=== PATIENT | female | born 1975 | race Caucasian/White ===

== ENCOUNTER → 2021-12-11 09:41 | Outpatient (CLI) | payer OTHER, SELFPAY ==
--- NOTE | ~2021-12-11 | MMUS_ITS ---
EXAMINATION: MM diagnostic darrell RT w abby, US breast RT limited HISTORY: Right breast mass on screening mammogram TECHNIQUE: Additional 3-D tomosynthesis images of the right breast were performed and synthetic 2-D i mages were generated. CAD analysis was submitted and interpreted. High resolution limited right breas t ultrasound was performed. COMPARISON: 11/27/2021 FINDINGS: MAMMOGRAPHIC FINDINGS: There is a 9 mm oval, obscured, equal density mass in the middle third of the upper-outer quadrant of the breast at the 10:00 location 9 cm from the nipple. No abnormal calcification or architectural di stortion are identified. ULTRASOUND: There is a 9 mm x 6 mm oval, circumscribed, parallel, hypoechoic mass with internal vascularity and n o distinct posterior features at the 10:00 location 7 cm from the nipple. IMPRESSION: 1. Indeterminate right breast mass. 2. Ultrasound-guided biopsy is recommended. BI-RADS category 4, suspicious findings. Reviewed, dictated and finalized at location A. IMPRESSION: 1. Indeterminate right breast mass. 2. Ultrasound-guided biopsy is recommended. BI-RADS category 4, suspicious findings.
== END ==
PROVIDERS: PCP Obstetrics & Gynecology Gynecology; Visit Provider Obstetrics & Gynecology Gynecology
DX: R92.8 Other abnormal and inconclusive findings on diagnostic imaging of breast (principal)
CPT/HCPCS: 76642; 77061; 77065; G0279

== ENCOUNTER 2022-03-25 17:29 | Emergency (ER) | payer OTHER, SELFPAY ==
[2022-03-25 17:59] VITALS: BP 156/104; PULSE 106; RESP 16; TEMP 36.9; O2SAT 100
--- NOTE | 2022-03-25 18:44 | ED.LOWEXIN ---
HPI - Extremity Injury (Lower) General Chief Complaint: Extremity Injury, Lower Stated Complaint: rt thigh swollen Time Seen by Provider: 03/25/22 18:45 Source: patient Mode of arrival: ambulatory Limitations: no limitations History of Present Illness HPI Narrative: 47 y/o female presented for c/o right thigh pain and swelling, onset this morning upon awakening. States pain is consistent throughout the day but swelling has increased. Denies injury, redness or discoloration. Rates pain 4/10, worse with movement. Denies numbness, tingling or weakness of the leg. Denies chest pain, heart racing, shortness of breath or dizziness. No recent travel. Sits at a desk for work. Hx HTN, DM. Related Data Home Medications Medication Instructions Recorded Confirmed etonogestrel 0.12 mg-ethinyl 1 vag ring vaginal MONTHLY 03/25/22 03/25/22 estradiol 0.015 mg/24 hr vaginal ring (NuvaRing) Allergies Allergy/AdvReac Type Severity Reaction Status Date / Time Sulfa (Sulfonamide Allergy Unknown Unknown Verified 03/25/22 18:03 Antibiotics) sulfanilamide Allergy Unknown Unknown Verified 03/25/22 18:03 EPIDURAL DRUG? Allergy Severe BP DROP Uncoded 03/25/22 18:03 Review of Systems Review of Systems: CONSTITUTIONAL: Denies body aches, fever, chills, or sweats. EYES: Denies visual changes, redness, or discharge. CARDIOVASCULAR: Reports RLE edema and pain. Denies chest pain, palpitations RESPIRATORY: Denies cough or dyspnea. GASTROINTESTINAL: Denies abdominal pain, nausea, vomiting, or diarrhea. SKIN: denies redness, wounds or rash. MUSCULOSKELETAL: Denies back pain, joint pain, or myalgia. NEUROLOGIC: Denies headache, numbness, tingling, or weakness. [facility] Past Medical History Medical History Anxiety BMI 39.0-39.9,adult BMI 40.0-44.9, adult Body mass index (BMI) of 40.1 to 44.9 in adult Essential (primary) hypertension Low vitamin B12 level Metabolic syndrome Onychomycosis of great toe Type 2 diabetes mellitus without complications Family History Family History Father Hypertension Cerebrovascular accident Family history of diabetes mellitus in first degree relative Grandparent Diabetes mellitus Mother Spinal stenosis Other Family history of malignant neoplasm Family history of muscular dystrophy Family history of seizure disorder Social History Social History Smoking status: Never smoker Alcohol intake: current Comments At time of signature, I have reviewed and agree with nursing past medical, surgical, social and family history unless otherwise noted. Please see nursing chart for further information. There is no relevant family history pertinent to the presenting complaint Exam Narrative: GENERAL: Well-appearing CHEST: Clear to auscultation. HEART: Regular rate and rhythm. SKIN: Warm, dry. EXT: RLE with significant swelling from thigh to foot, cool extremity, no redness or discoloration, no open wounds or rash. PPP. Full ROM to RLE. Ambulates with steady gait. NEURO: Alert and oriented x3. Course Course Emergency Course: Patient is aware of diagnosis, understands and agrees to treatment plan. Anticipatory guidance given. Portions of this record may have been created with voice recognition software Level of Care: Express Care Visit Vital Signs Vital signs: Vital Signs Temperature 98.5 F 03/25/22 17:59 Pulse Rate 106 H 03/25/22 17:59 Respiratory Rate 16 03/25/22 17:59 Blood Pressure 156/104 H 03/25/22 17:59 Pulse Oximetry 100 03/25/22 17:59 Oxygen Delivery Room Air 03/25/22 17:59 Temperature 98.5 F 03/25/22 17:59 Pulse Rate 106 H 03/25/22 17:59 Respiratory Rate 16 03/25/22 17:59 Blood Pressure 156/104 H 03/25/22 17:59 Pulse Oximetry 100 03/25/22 17:59 Oxygen De
== END 2022-03-25 19:00 | disposition short-term general hospital (02) ==
PROVIDERS: Emergency Provider Nurse Practitioner Family; PCP Family Medicine
DX: R60.0 Localized edema (principal); I10 Essential (primary) hypertension; E11.9 Type 2 diabetes mellitus without complications; Z79.84 Long term (current) use of oral hypoglycemic drugs
CPT/HCPCS: 99212; G0463

== ENCOUNTER 2022-03-25 19:15 | Emergency (ER) | payer OTHER, SELFPAY ==
--- NOTE | ~2022-03-25 | US_ITS ---
EXAMINATION: US venous doppler LE RT DATE: 03/25/2022 21:24 INDICATION: DVT ? . TECHNIQUE: Grayscale images without and with compression and Doppler images of the right lower extrem ity veins were obtained. COMPARISON: None FINDINGS: Acute thrombus in the common femoral, profunda (deep) femoral vein, femoral vein, popliteal vein, pos terior tibial vein, and greater saphenous vein. The right lesser saphenous vein and gastrocnemius vei n are patent. The right peroneal veins were poorly visualized. IMPRESSION: Extensive right lower extremity deep venous thrombosis extending from the right posterior tibial vein s to the right common femoral vein. Results reported telephonically to Dr. Hillman by Dr. Plascencia at 9:30 PM on 03/25/2022. Reviewed, dictated and finalized at location K. IFIED HYPERBARIC TECHNICIAN IMPRESSION: Extensive right lower extremity deep venous thrombosis extending from the right posterior tibial veins to the right common femoral vein. Results reported telephonically to Dr. Hillman by Dr. Plascecnia at 9:30 PM on 2021.
[2022-03-25 19:24] VITALS: BP 188/108; PULSE 106; RESP 18; TEMP 37.1; O2SAT 100
[2022-03-25 20:01] LABS: Basophils Percent Auto 0.4 % (0.2-1.2); Eosinophils Absolute Auto 0.1 K/mm3 (0-0.3); Eosinophils Percent Auto 1.3 % (0-4.4); Hematocrit 38.8 % (37.0-47.0); Hemoglobin 12.7 g/dL (12.0-15.0); Immature Granulocyte Absolute 0.03 K/mm3 (0.00-0.031); Immature Granulocyte Percent A 0.3 % (0-0.5); Lymphocytes Absolute Auto 2.33 K/mm3 (0.9-3.2); Lymphocytes Percent Auto 24.6 % (18.3-44.2); Mean Corpuscular HGB Conc 32.7 g/dl (32-36); Mean Corpuscular Hemoglobin 28.2 pg (26-34); Mean Platelet Volume 10.7 fl (7.4-10.4); Monocytes Absolute Auto 0.7 K/mm3 (0.1-0.6); Monocytes Percent Auto 7.2 % (2.6-8.5); Neutrophils Absolute Auto 6.3 K/mm3 (1.3-6.7); Neutrophils Percent Auto 66.2 % (45.5-73.1); Platelet Count Result 221 k/mm3 (150-375); Red Blood Count 4.51 M/mm3 (4.2-5.4); White Blood Count 9.5 K/mm3 (4.5-10.0)
[2022-03-25 20:11] LABS: INR 0.9; Prothrombin Time 11.9 Seconds (11.1-14.7)
[2022-03-25 20:13] LABS: Alanine Aminotransferase 21 U/L (6-35); Albumin Level 4.4 g/dL (3.5-5.1); Alkaline Phosphatase 53 U/L (38-126); Anion Gap 11 mmol/L (8-16); Aspartate Amino Transferase 21 U/L (14-36); Bilirubin,Total 0.4 mg/dL (0.2-1.3); Blood Urea Nitrogen 20 mg/dL (7-17); Calcium 9.3 mg/dL (8.4-10.2); Carbon Dioxide 22 mmol/L (22-30); Chloride 102 mmol/L (98-107); Estimated CRCL calculation 87 ml/min; Estimated Glomerular Filt Rate > 60; Glucose 156 mg/dL (65-110); Potassium 3.6 mmol/L (3.4-5.0); Sodium 135 mmol/L (137-145)
[2022-03-25 20:30] VITALS: BP 180/99; PULSE 100; RESP 16; O2SAT 98
--- NOTE | 2022-03-25 20:59 | ED.EXTPRO ---
HPI - Extremity Problem General Chief complaint: Extremity Problem,Nontraumatic Stated complaint: swelling and pain in my leg Time Seen by Provider: 03/25/22 20:25 History of Present Illness HPI Narrative: Patient states that this morning she was working and that she does sit a lot, but noticed that her right thigh seem to have swollen up, and was becoming painful. She has had sometimes had swelling in her legs before but only after injury such as when she sprained her knee, she has no other symptoms, no fevers or chills, the area of her upper right thigh is painful to touch. Related Data Home Medications Medication Instructions Recorded Confirmed etonogestrel 0.12 mg-ethinyl 1 vag ring vaginal MONTHLY 03/25/22 03/25/22 estradiol 0.015 mg/24 hr vaginal ring (NuvaRing) Allergies Allergy/AdvReac Type Severity Reaction Status Date / Time Sulfa (Sulfonamide Allergy Unknown Unknown Verified 03/25/22 19:18 Antibiotics) sulfanilamide Allergy Unknown Unknown Verified 03/25/22 19:18 EPIDURAL DRUG? Allergy Severe BP DROP Uncoded 03/25/22 18:03 Review of Systems Review of Systems: CONST: No fever. HEENT: No sore throat C/V: No chest pain RESP: No cough GI: No nausea or vomiting : No dysuria. M/S: Right thigh pain SKIN: Slightly reddened skin over the right thigh NEURO: [No headache or focal numbness or weakness] PSYCH: [No depression] PMFSH Past Medical History Medical History Anxiety BMI 39.0-39.9,adult BMI 40.0-44.9, adult Body mass index (BMI) of 40.1 to 44.9 in adult Essential (primary) hypertension Low vitamin B12 level Metabolic syndrome Onychomycosis of great toe Type 2 diabetes mellitus without complications Family History Family History Father Hypertension Cerebrovascular accident Family history of diabetes mellitus in first degree relative Grandparent Diabetes mellitus Mother Spinal stenosis Other Family history of malignant neoplasm Family history of muscular dystrophy Family history of seizure disorder Social History Social History Smoking status: Never smoker Alcohol intake: current Exam Narrative: EXAMINATION OF ORGAN SYSTEMS/BODY AREAS: Constitutional: Vital signs per nursing GENERAL:[No acute distress, non-toxic appearing.] HEAD: Normal with no signs of head trauma. EYES: EOMI, conjunctiva normal ENT: Hearing grossly intact LUNGS: Nonlabored breathing. HEART: [Regular rate and rhythm] ABD: [Soft], [nontender to palpation] EXT: Swelling of right upper leg compared to leg, with some tenderness to medial upper leg and some skin discoloration; no exquisite tenderness or induration of skin SKIN: per above NEURO: [Alert and oriented x 3. No gross focal sensory or strength deficits.] PSYCH: Normal affect Course Vital Signs Vital signs: Vital Signs Temperature 98.7 F 03/25/22 19:24 Pulse Rate 106 H 03/25/22 19:24 Respiratory Rate 18 03/25/22 19:24 Blood Pressure 188/108 H 03/25/22 19:24 Pulse Oximetry 100 03/25/22 19:24 Temperature 98.7 F 03/25/22 19:24 Pulse Rate 100 03/25/22 20:30 Respiratory Rate 16 03/25/22 20:30 Blood Pressure 180/99 H 03/25/22 20:30 Pulse Oximetry 98 03/25/22 20:30 MDM - Extremity (Nontraumatic) MDM Narrative Medical decision making narrative: 47-year-old female presenting with right thigh pain that started today, she is on NuvaRing and her mother did have a history of DVTs, vital signs notable for slightly elevated heart rate and blood pressure however patient states that she is nervous, on exam she does have swelling and some tenderness to the right thigh, and concern for possible DVT given her symptoms, ultrasound does confirm extensive DVT, she will be started on Eliquis, she is denying any chest pain or difficulty breathing, so I do feel sh
[2022-03-25] MEDS: APIXABAN 5 MG TABLET 10 MG PO (21:58)
== END 2022-03-25 22:30 | disposition home or self-care (01) ==
PROVIDERS: Emergency Medicine; Emergency Provider Emergency Medicine; PCP Family Medicine
DX: I82.441 Acute embolism and thrombosis of right tibial vein (principal); I82.411 Acute embolism and thrombosis of right femoral vein; E11.9 Type 2 diabetes mellitus without complications; I10 Essential (primary) hypertension; E88.81 Metabolic syndrome and other insulin resistance; Z79.84 Long term (current) use of oral hypoglycemic drugs; Z79.01 Long term (current) use of anticoagulants
CPT/HCPCS: 36415; 80053; 85025; 85610; 85730; 93971; 99284; A9270

== ENCOUNTER → 2022-04-25 08:55 | Outpatient (CLI) | payer OTHER, SELFPAY ==
--- NOTE | ~2022-04-25 | MMUS_ITS ---
EXAMINATION: MM diagnostic darrell RT w abby, US breast RT limited HISTORY: Follow-up mass after recent right breast biopsy on 01/2022. Biopsy is benign per clinical his tory. TECHNIQUE: Additional 3-D tomosynthesis images of the right breast were performed and synthetic 2-D i mages were generated. CAD analysis was submitted and interpreted. High resolution Limited right breas t ultrasound was performed. COMPARISON: Comparison to multiple prior studies sequentially, with oldest reviewed study dated 11/27. BREAST PARENCHYMAL COMPOSITION: Breast composed of scattered areas of fibroglandular density FINDINGS: MAMMOGRAPHIC FINDINGS: There is a small mass adjacent to the tissue marker in the upper outer quadrant of the right breast w hich appears slightly smaller than on prior examination allowing for differences of technique. No new masses, calcifications or architectural distortion. ULTRASOUND: Limited right breast ultrasound: At 10:00, 7 cm from the nipple there is an oval circumscribed hypoec hoic mass with parallel orientation, subtle posterior acoustic enhancement and no internal vascularit y measuring 9 x 9 x 6 mm compared with 10 x 8 x 6 mm on 12/11/2021. IMPRESSION: 1. Stable right breast mass at 10:00, 7 cm from the nipple. This was recently biopsy proven benign. N o evidence for malignancy. 2. Routine yearly screening mammogram and regular clinical breast examination are recommended. BI-RADS Category 2: Benign finding(s). Reviewed, dictated and finalized at location A. TRAM DRIVER IMPRESSION: 1. Stable right breast mass at 10:00, 7 cm from the nipple. This was recently b iopsy proven benign. No evidence for malignancy. 2. Routine yearly screening mammogram and regular clinical breast examination a re recommended. BI-RADS Category 2: Benign finding(s).
== END ==
PROVIDERS: PCP Family Medicine; Visit Provider Surgery
DX: N63.10 Unspecified lump in the right breast, unspecified quadrant (principal); R92.8 Other abnormal and inconclusive findings on diagnostic imaging of breast
CPT/HCPCS: 76642; 77061; 77065; G0279

== ENCOUNTER → 2022-11-27 14:59 | Outpatient (CLI) | payer OTHER, SELFPAY ==
--- NOTE | ~2022-11-27 | US_ITS ---
EXAMINATION:US venous doppler LE RT INDICATION:History of DVT. TECHNIQUE: Multiple grayscale, color flow and Doppler images of the right lower extremity deep venous systems were obtained and reviewed. COMPARISON:Ultrasound dated 03/25/2022 FINDINGS: There is deep venous thrombosis of the right common femoral, popliteal veins. There is supe rficial venous thrombosis of the greater saphenous vein. The remainder of the right lower extremity v eins are patent with normal flow. IMPRESSION: 1: Deep venous thrombosis of the right common femoral and popliteal veins, possibly chronic. Reviewed, dictated and finalized at location A. IMPRESSION: 1: Deep venous thrombosis of the right common femoral and popliteal veins, poss ibly chronic.
== END ==
DX: I82.411 Acute embolism and thrombosis of right femoral vein (principal); I82.431 Acute embolism and thrombosis of right popliteal vein
CPT/HCPCS: 93971

== ENCOUNTER → 2023-05-30 08:44 | Outpatient (CLI) | payer OTHER, SELFPAY ==
--- NOTE | ~2023-05-30 | US_ITS ---
EXAMINATION: US venous doppler LE RT DATE: 05/30/2023 09:29 INDICATION: Recent deep venous thrombosis in the right lower limb with persistent right lower limb sw elling TECHNIQUE: Grayscale ultrasound images without and with compression and Doppler ultrasound images of the right lower extremity veins were obtained. COMPARISON: None. FINDINGS: Persist noncompressible nonocclusive thrombus in the right common femoral vein, greater saphenous vei n outflow tract, profunda (deep) femoral vein, femoral vein, popliteal vein and peroneal trunk. Appro ximately where the veins are larger there is discernible linear echogenic margin to the thrombus whic h can be seen with chronic thrombus. The more distal right posterior tibial and peroneal veins remain patent. IMPRESSION: 1. Persistent chronic nonocclusive deep venous thrombosis in the veins between the right common femo ral vein at the groin and the peroneal trunk at the proximal calf. Reviewed, dictated and finalized at location A. NT SOLUTIONS DIRECTOR IMPRESSION: 1. Persistent chronic nonocclusive deep venous thrombosis in the veins between the right common femoral vein at the groin and the peroneal trunk at the proxi mal calf.
== END ==
DX: I82.491 Acute embolism and thrombosis of other specified deep vein of right lower extremity (principal)
CPT/HCPCS: 93971

== ENCOUNTER 2023-11-24 10:20 | Outpatient (CLI) | payer OTHER, SELFPAY ==
--- NOTE | ~2023-11-24 | US_ITS ---
EXAMINATION: US venous doppler LE RT DATE: 11/24/2023 11:13 INDICATION: Deep venous thrombosis TECHNIQUE: Grayscale ultrasound images without and with compression and Doppler ultrasound images of the right lower extremity veins were obtained. COMPARISON: None. FINDINGS: Persistent noncompressible nonocclusive thrombus in the right common femoral vein, greater saphenous vein outflow, but profunda femoral vein, femoral vein and in the popliteal vein. The visualized porti ons of right peroneal trunk, posterior tibial veins, peroneal veins and gastrocnemius vein are patent . IMPRESSION: 1. Persistent chronic nonocclusive deep venous thrombosis in the veins between the right common femo ral vein the groin and the popliteal vein at the knee. Reviewed, dictated and finalized at location A. IMPRESSION: 1. Persistent chronic nonocclusive deep venous thrombosis in the veins between the right common femoral vein the groin and the popliteal vein at the knee.
== END 2023-11-24 10:21 ==
PROVIDERS: PCP Internal Medicine Hematology & Oncology; Visit Provider Internal Medicine Hematology & Oncology
DX: I82.491 Acute embolism and thrombosis of other specified deep vein of right lower extremity (principal)
CPT/HCPCS: 93971

== ENCOUNTER 2024-02-13 11:51 | Outpatient (CLI) | payer OTHER, SELFPAY ==
--- NOTE | ~2024-02-13 | US_ITS ---
EXAMINATION: US venous doppler LE RT DATE: 02/13/2024 12:21 INDICATION: Right lower limb deep vein thrombosis. TECHNIQUE: Grayscale ultrasound images without and with compression and Doppler ultrasound images of the right lower extremity veins were obtained. COMPARISON: Ultrasound 11/24/2023 FINDINGS: The visualized portions of right profunda (deep) femoral vein, femoral vein, popliteal vein, peroneal veins, and posterior tibial veins are patent. There is thrombus in right common femoral vein and gre ater saphenous vein. IMPRESSION: 1. Deep vein thrombosis involving right common femoral vein with interval improvement in distributio n. 2. Thrombus in right greater saphenous vein, which is a superficial vein. Reviewed, dictated and finalized at location A. IMPRESSION: 1. Deep vein thrombosis involving right common femoral vein with interval impr ovement in distribution. 2. Thrombus in right greater saphenous vein, which is a superficial vein.
== END 2024-02-13 11:52 | disposition home or self-care (01) ==
LOC: MICIMG 11:53
PROVIDERS: PCP Internal Medicine Hematology & Oncology; Visit Provider Internal Medicine Hematology & Oncology
DX: I82.491 Acute embolism and thrombosis of other specified deep vein of right lower extremity (principal)
CPT/HCPCS: 93971

== ENCOUNTER 2024-06-23 13:24 | Outpatient (CLI) | payer OTHER, SELFPAY ==
--- NOTE | ~2024-06-23 | US_ITS ---
EXAMINATION: US venous doppler LE DATE: 06/23/2024 14:24 INDICATION: Deep venous thrombosis TECHNIQUE: Grayscale ultrasound images without and with compression and Doppler ultrasound images of the bilateral lower extremity veins were obtained. COMPARISON: 02/13/2024 FINDINGS: There is persistent nonocclusive thrombus in the right common femoral vein and greater saphenous vein . The visualized portions of right profunda (deep) femoral vein, femoral vein, popliteal vein, aviation neuropsychologist ior tibial veins, peroneal veins, gastrocnemius vein and soleal vein remain patent. The visualized portions of left common femoral vein, profunda femoral vein, femoral vein, popliteal v ein, posterior tibial veins, peroneal veins, gastrocnemius vein, soleal vein and greater saphenous ve in outflow are patent. IMPRESSION: 1. No change in chronic deep venous thrombosis in the right common femoral vein and thrombosis of th e right greater saphenous vein. No new or progressive deep venous thrombosis in the right lower limb. 2. No deep venous thrombosis in the left lower limb. Reviewed, dictated and finalized at location A. ASOUND APPLICATIONS SPECIALIST IMPRESSION: 1. No change in chronic deep venous thrombosis in the right common femoral vei n and thrombosis of the right greater saphenous vein. No new or progressive froilan p venous thrombosis in the right lower limb. 2. No deep venous thrombosis in the left lower limb.
== END 2024-06-23 13:25 | disposition home or self-care (01) ==
LOC: MICIMG 13:25
PROVIDERS: PCP Internal Medicine Hematology & Oncology; Visit Provider Internal Medicine Hematology & Oncology
DX: I82.491 Acute embolism and thrombosis of other specified deep vein of right lower extremity (principal)
CPT/HCPCS: 93970